=== PATIENT | female | born 1940 | race Caucasian/White ===

== ENCOUNTER 2016-12-13 06:42 | Inpatient (IN) ==
[~2016-12-13 06:42] MED LIST: ACETAMINOPHEN 500 MG TABLET PO ONE; CLINDAMYCIN PB 900 MG/50 ML BAG IV ONE; DEXAMETHASONE 4 MG/ML INJECTION IVP ONE; FAMOTIDINE PB 20 MG/50 ML BAG IV ONE; LIDOCAINE 1% (10mg/ml) 2mL INJ PF SDV ID ONE; MELOXICAM 15 MG TABLET PO ONE; METOCLOPRAMIDE 10mg/2ml INJECTION IVP ONE; NOZIN NASAL SWAB NAS ONE; ONDANSETRON 4 MG/2 ML INJECTION IVP ONE; SALINE FLUSH 10ml SYRINGE IVF PRN; TRANEXAMIC ACID 1,000 MG in NS 100 ML IV ONE
--- OUTSIDE RECORDS SUMMARY | 2016-12-13 06:53 | External Medical Summary | Continuity of Care Document ---
:1940 Author Organization [facility] Address [address] [place] [address] Phone Care Team Providers Name Role Phone Deanne PHAM, Corbin Primary Care Provider Layla Live Unavailable Abdulaziz Booker Unavailable Unavailable Nathalie Yang LPN Unavailable Unavailable Unavailable Problems Name Dates Details Acute Pancreatitis Status: Active BENIGN HYPERTENSION (401.1, I10) Status: Active Breast cancer screening (V76.10, Z12.39) Status: Active Cardiac murmur, previously undiagnosed (785.2) Status: Active Cataract Removal, Insert Prosthetic Lens Onset:2015 Comments: bilateral Status: Active Chronic allergic conjunctivitis (372.14, H10.45) Status: Active Edema (782.3, R60.9) Status: Active GLAUCOMA (365.9, H40.9) Onset:2015 Comments: left eye Status: Active JOINT PAIN (719.40, M25.50) Status: Active Knee pain (719.46, M25.569) Status: Active LUMBAR BACK PAIN (724.2, M54.5) Status: Active OSTEOARTHRITIS, KNEE (715.96, M17.10) Status: Active POSTMENOPAUSAL STATUS (AGE-RELATED) (NATURAL) (V49.81, Z78.0) Status: Active Pregnancies () Comments: , vaginal deliveries, no complications , Bottle fed Status: Active PREOP EXAMINATION (V72.84, Z01.818) Status: Active Unspecified Diagnosis Status: Active Medications Name Dates Details DilTIAZem HCl ER Coated Beads 240 MG Oral Capsule Extended Release 24 Hour 1 Capsule ER 24HR daily for 90 days Quantity: 90 {Capsule} Refills: 3 Ordered: Layla Morgan Start Active Comments:Dr. Alicea FISH OIL CONCENTRATE, 300MG (Oral Capsule) 1 daily (300 MG) Active LASIX, 20MG (Oral Tablet) 1 Tablet daily, as needed for 0 days Quantity: 30 {Tablet} Refills: 1 Ordered:03-Jan-2014 Corbin Alicea MD, Travis MD Start 03-Jan-2014 Active Comments:Medication taken as needed. MULTIVITAMINS (Oral Tablet) 1 daily Active Voltaren 1 % Transdermal Gel 4 Gram four times daily for 0 days Quantity: 100 {Gram} Refills: 2 Ordered: Layla Morgan Start Active Comments:Dr. Alicea BACTRIM DS, 800-160MG (Oral Tablet) 1 (one) Tablet two times daily for 0 days Refills: 0 Ordered:11-Dec-2008 Corbin Alicea MD, Travis MD Start 11-Dec-2008 End 31-Aug-2010 Inactive CALCIUM, 600MG (Oral Tablet) (600 MG) Inactive Diclofenac Sodium 75 MG Oral Tablet Delayed Release 1 (one) Tablet DR Rosangela DR two times daily for 0 days Quantity: 180 {Tablet} Refills: 3 Ordered: Briseida Greenwood Start 09-Dec-2013 End Inactive DILTIAZEM HCL CR, 180MG (Oral Capsule Extended Release 24 Hour) 1 Capsule ER 24HR daily for 0 days Quantity: 90 {Capsule_ER_24HR} Refills: 0 Ordered:30-Jul-2010 Keerthi De Souza LPN Start 29-Jul-2010 Inactive ETODOLAC, 500MG (Oral Tablet) 1 (one) Tablet two times daily for 0 days Quantity: 180 {Tablet} Refills: 3 Ordered:26-Aug-2014 Briseida Greenwood Start End 26-Aug-2014 Inactive fish oil 4mg 1 PO QD 1 Daily End 31-Aug-2010 Inactive GLUCOSAMINE CHONDR 1500 COMPLX (Oral Capsule) Inactive LASIX, 20MG (Oral Tablet) 1 Tablet daily for 0 days Refills: 0 Ordered:11-Dec-2008 Mary Ellen Flores MD Start 11-Dec-2008 Inactive METOPROLOL TARTRATE, 50MG (Oral Tablet) 1 Tablet two times daily for 0 days Quantity: 180 {Tablet} Refills: 3 Ordered:14-Sep-2010 Sofi Cabrera [employer] Start 14-Sep-2010 End Inactive MOBIC, 15MG (Oral Tablet) 1 Tablet Tablet daily for 90 days Quantity: 90 {Tablet} Refills: 2 Ordered:09-Dec-2013 Corbin Alicea MD, Travis MD Start 13-Aug-2013 End 09-Dec-2013 Inactive Comments:Pt requests [address] Alicea approved refill. [facility]. [facility] PATADAY, 0.2% (Ophthalmic Solution) 1 (one) drop(s) OU daily for 0 days Quantity: 2 {Solution} Refills: 0 Ordered:17-Jan-2013 Yinamolina Nathalie LPN Start 31-Aug-2010 End 17-Jan-2013 Inactive POTASSIUM, 99MG (Oral Tablet) 1 daily (99 MG) End Inactive LODINE, 500MG (Oral Tablet) 1 two times daily for 0 days Refills: 3 Ordered:24-Mar-2008 Josiane Barrera RN Start 24-Mar-2008 End 11-Dec-2008 Discontinued Comments:This order discontinued per [facility]. ZITHROMAX Z-JOVANA, 250MG (PO Cap) for 0 days Refills: 0 Ordered:11-Dec-2008 Josiane Barrera RN End 11-Dec-2008 Discontinued Comments:This order discontinued per [facility]. Allergies and Adverse Reactions Name Dates Details Anesthetic *DERMATOLOGICALS* (Allergy) Status: Active Comments: Was on ventilator for 4 days in 2005 after anesthesia. Diflucan *ANTIFUNGALS* (Allergy) Reaction: Itching Status: Active Flagyl *ANTI-INFECTIVE AGENTS - MISC.* Status: Active Comments: Edema, rash , hives, itching (Allergy) Keflex *CEPHALOSPORINS* (Allergy) Status: Active Comments: rash Levaquin *FLUOROQUINOLONES* (Allergy) Status: Active Comments: Edema, hives , itching, rash, Past Medical History Name Dates Details INFLUENZA VACCINE ADMINISTERED (V04.81, Z23) Status: Inactive Procedures Procedure Dates Details CHEST X-RAY, (PA/LATERAL)(06972) Ordered: ADMIN INFLUENZA VIRUS VAC: ADMIN Ordered:17-Jan-2013 INFLUENZA VIRUS VAC ([id number]) IMMUNIZATION ADMIN ([id number]) Completed:17-Jan-2013 FLU VACCINE, 3 YRS & >, IM Completed:17-Jan-2013 (48209) DXA BONE DENSITY/PERIPHERAL Ordered:17-Jan-2013 (07703) DXA BONE DENSITY, AXIAL (48226) Ordered:17-Jan-2013 ECHOCARDIOGRAM (75509) Ordered:17-Jan-2013 MAMMOGRAM, SCREENING (11940) Ordered:17-Jan-2013 Influenza: vaccine Ordered:07-Feb-2012 IMMUNIZATION ADMIN ([id number]) Age 18 Completed:07-Feb-2012 & Over FLU VACCINE NO PRESERV 3 & Completed:07-Feb-2012 > (85876) ECG RECORDING, Ordered:10-Apr-2009 MONITORING/ANALYSIS (61758) ECG RECORDING, PHYS Ordered:10-Apr-2009 INTERPRETATION ([id number]) Cholecystectomy Dilation And Curettage Of Uterus Comments: excessive bleeding Tonsillectomy Comments: and adnoidectomy Immunization Name Dates Details Influenza (3 years and up) Administered on:17-Jan-2013 Comments: Site: Deltoid (Left) Lot #: [id number] Influenza, preservative free (3 years and up) Administered on:07-Feb-2012 Comments: Site: Deltoid (Right) Lot #: [id number] Family History Name Dates Details Brother 1 Comments: In stable health. Open heart surgery, 2 AR's, Diabetes , Thyroid dysfunction Status: Active Daughter 1 Comments: In good health. Tomeka Status: Active Daughter 2 Comments: In good health. Giuliana, pleural effusion Status: Active Daughter 3 Comments: In good health. Lanie, has pituatary problem Status: Active Daughter 4 Comments: In good health. Linda Status: Active Father Comments: . CVA, [place], 94 Status: Active Maternal Grandfather Comments: . Heart problems Status: Active Maternal Grandmother Comments: . after surgery, opened 7 times in 1 month, had adhesions Status: Active Mother Comments: . Knee replacements, CHF. age 83. Status: Active Paternal Grandfather Comments: . unk. cause of Status: Active Paternal Grandmother Comments: . 'old age' Status: Active Social History Name Dates Details Alcohol Use Comments: None Status: Active Caffeine Use Comments: 1 coffee a day, occ. soda Status: Active Current Household Members Comments: Status: Active Dentures or plates Comments: Upper and lower Status: Active Highest Education Level Attained: College graduate. Status: Active Marital status: . 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 Status: Active Orthodox Comments: Gnosticist Status: Active Tobacco Use: Former smoker. Comments: Smoked from age 16 to 1985 Status: Active Type Of Home: House. Status: Active Vital Signs Date Test Result Details 15:38 Temperature 97.6 f Comments: Method: Tympanic Pulse 87 /min Comments: Pattern: Regular Respiration Rate 18 /min Comments: Pattern: Unlabored O2 SAT 90 % Comments: Room air BP Systolic 132 mm[Hg] Comments: Patient Position: Sitting; Cuff Location: Right Arm; Cuff Size: Standard BP Diastolic 80 mm[Hg] Comments: Patient Position: Sitting; Cuff Location: Right Arm; Cuff Size: Standard Weight 247.25 lb Height 67.75 in Body Mass Index Calculated 37.87 kg/m2 Body Surface Area Calculated 2.23 m2 26-Aug-2014 16:08 Temperature 98 f Comments: Method: Tympanic Pulse 89 /min Comments: Pattern: Regular Respiration Rate 18 /min Comments: Pattern: Unlabored O2 SAT 95 % Comments: Room air BP Systolic 130 mm[Hg] Comments: Patient Position: Sitting; Cuff Location: Right Arm; Cuff Size: Standard BP Diastolic 80 mm[Hg] Comments: Patient Position: Sitting; Cuff Location: Right Arm; Cuff Size: Standard Weight 245.75 lb Height 67.75 in Body Mass Index Calculated 37.64 kg/m2 Body Surface Area Calculated 2.23 m2 26-Sep-2013 13:28 Temperature 97.4 f Comments: Method: Tympanic Pulse 103 /min Comments: Pattern: Regular Respiration Rate 18 /min Comments: Pattern: Unlabored O2 SAT 97 % Comments: 4L O2 BP Systolic 128 mm[Hg] Comments: Patient Position: Sitting; Cuff Location: Left Arm; Cuff Size: Standard BP Diastolic 64 mm[Hg] Comments: Patient Position: Sitting; Cuff Location: Left Arm; Cuff Size: Standard Weight 248.25 lb Height 67.75 in Body Mass Index Calculated 38.02 kg/m2 Body Surface Area Calculated 2.23 m2 17-Jan-2013 13:24 Temperature 96.7 f Comments: Method: Tympanic Pulse 89 /min Comments: Pattern: Regular Respiration Rate 16 /min Comments: Pattern: Unlabored O2 SAT 95 % Comments: Room air BP Systolic 122 mm[Hg] Comments: Patient Position: Sitting; Cuff Location: Left Arm; Cuff Size: Standard BP Diastolic 78 mm[Hg] Comments: Patient Position: Sitting; Cuff Location: Left Arm; Cuff Size: Standard Weight 248 lb 13:02 Temperature 97.5 f Comments: Method: Tympanic Pulse 87 /min Comments: Pattern: Regular Respiration Rate 16 /min Comments: Pattern: Unlabored O2 SAT 95 % Comments: Room air BP Systolic 120 mm[Hg] Comments: Patient Position: Sitting; Cuff Location: Left Arm; Cuff Size: Large BP Diastolic 80 mm[Hg] Comments: Patient Position: Sitting; Cuff Location: Left Arm; Cuff Size: Large Weight 242.5 lb Height 67.75 in Body Mass Index Calculated 37.14 kg/m2 Body Surface Area Calculated 2.21 m2 31-Aug-2010 15:52 Temperature 97.5 f Comments: Method: Tympanic Pulse 77 /min Comments: Pattern: Regular Respiration Rate 12 /min Comments: Pattern: Unlabored O2 SAT 97 % Comments: Room air BP Systolic 128 mm[Hg] Comments: Patient Position: Sitting; Cuff Location: Left Arm; Cuff Size: Standard BP Diastolic 80 mm[Hg] Comments: Patient Position: Sitting; Cuff Location: Left Arm; Cuff Size: Standard Weight 244.75 lb 10-Apr-2009 13:28 Temperature 97 f Comments: Method: Tympanic Pulse 80 /min Comments: Pattern: Regular Respiration Rate 20 /min Comments: Pattern: Unlabored O2 SAT 93 % Comments: Room air BP Systolic 120 mm[Hg] Comments: Patient Position: Sitting; Cuff Location: Left Arm; Cuff Size: Standard BP Diastolic 70 mm[Hg] Comments: Patient Position: Sitting; Cuff Location: Left Arm; Cuff Size: Standard Weight 258 lb Results Date Description Value Details 09-Sep-2010 09:54 CBC AUTOMATED Comments: notify all labs look good, no change MPV 7.1 fL (Normal) Range: 7.0-11.0 PLT 229 10*3/uL Range: 150-450 (Normal) RDW 13.0 % (Normal) Range: 11.5-14.5 HCT 42.5 % (Normal) Range: 33.2-49.4 MCH 30.5 PG (Normal) Range: 25.9-34.2 MCHC 34.4 g/dL (Normal) Range: 32.6-35.7 MCV 89 fL (Normal) Range: 78-97 BA# 0.0 10*3/uL Range: 0.0-0.2 (Normal) HGB 14.6 g/dL (Normal) Range: 11.4-16.4 RBC 4.78 M/UL (Normal) Range: 3.70-5.30 EO# 0.2 10*3/uL Range: 0.0-0.7 (Normal) LY# 1.2 10*3/uL Range: 1.0-3.5 (Normal) MO# 0.4 10*3/uL Range: <0.9 (Normal) NE# 3.7 10*3/uL Range: 1.5-6.6 (Normal) BA% 0.6 % (Normal) Range: 0.0-2.0 EO% 4.0 % (Abnormal) Range: 1.0-3.0 LY% 22.1 % (Normal) Range: 10.0-50.0 MO% 8.0 % (Normal) Range: 3.0-13.0 NE% 65.3 % (Normal) Range: 40.0-79.0 WBC AUTO 5.5 10*3/uL Range: 4.0-10.5 (Normal) 09:54 COMPREHENSIVE MET PANEL GFR >60 ML/MIN Range: >60 (Normal) AST 16 U/L (Normal) Range: 15-46 ALP 69 U/L (Normal) Range: 39-139 ALT 20 U/L (Normal) Range: 11-66 TBIL 0.6 mg/dL (Normal) Range: 0.2-1.3 A/G RATIO 1.1 (Normal) Range: 1.1-2.5 ALB 3.9 g/dL (Normal) Range: 3.5-5.1 CO2 27.5 mg/dL (Normal) Range: 22.0-32.0 TPROTEIN 7.4 g/dL (Normal) Range: 6.4-9.0 CL 105 mmol/L (Normal) Range: 99-110 K 4.2 mmol/L (Normal) Range: 3.5-5.1 NA 142 mmol/L (Normal) Range: 137-145 BUN/CREA RATIO 25.0 (Normal) Range: 0.0-30.0 CA 9.2 mg/dL (Normal) Range: 8.4-10.2 BUN 18.0 mg/dL Range: 7.0-17.0 (Abnormal) CREAT 0.7 mg/dL (Normal) Range: 0.7-1.2 GLUCOSE 100 mg/dL (Normal) Range: 70-100 09:54 LIPID PANEL Comments: FASTING? YES LDL/DHDL 1.70 mg/dL (Normal) Range: 0.70-3.55 CHOL/HDL 3.5 RATIO (Normal) Range: <5.6 VLDL 35 mg/dL (Normal) Range: 0-40 CHOL 152 mg/dL (Normal) Range: 0-200 HDL 43 mg/dL (Normal) Range: 40-60 LDLC 73 mg/dL (Normal) Range: 0-130 TRIG 177 mg/dL Range: 30-150 (Abnormal) 09:54 TSH 1.99 UIU/ML Range: 0.49-4.67 (Normal) Treatment Plan URINALYSIS, AUTOMATED, W/O MICRO (31233); Ordered: 11/17/2016EKG (57185); Ordered : 11/17/2016COMPREHENSIVE METABOLIC PANEL (20992); Ordered: 11/17/2016CBC WITH AUTO DIFF (38390); Ordered: 11/17/2016COMPREHENSIVE METABOLIC PANEL(CMP),(44465) ; Ordered: 01/17/2013LIPID PANEL (70671); Ordered: 01/17/2013CBC (06643); Ordered : 01/17/2013LIPID PANEL (30067); Ordered: 10/21/2011COMPREHENSIVE METABOLIC PANEL( CMP),(61252); Ordered: 10/21/2011CBC (94126); Ordered: 10/21/2011TSH (THYROID STIMULATING HORMONE) (04530); Ordered: 08/31/2010LIPID PANEL (43980); Ordered: COMPREHENSIVE METABOLIC PANEL(CMP),(13859); Ordered: 08/31/2010CB (48010) ; Ordered: 08/31/2010TSH (THYROID STIMULATING HORMONE) (95472); Ordered: 2008CB (34454); Ordered: 04/10/2009LIPID PANEL (40848); Ordered: 2008COMPREHENSIVE METABOLIC PANEL(CMP),(71886); Ordered: 04/10/2009 Advance Directives Encounters Review - PREOP EXAMINATION (V72.84 | Z01.818), OSTEOARTHRITIS, KNEE (715.36 | M17.10), POSTMENOPAUSAL STATUS (AGE-RELATED) (NATURAL) (V49.81 | Z78.0), BENIGN HYPERTENSION (401.1 | I10) On Encounter Reason: Preoperative evaluation - The patient feels well with minor complaints (left knee arthritis, to be replaced). Surgical procedures include: other (left knee replacement). Date of procedure: (12-13-16) . P 15:37 revious problems include: a reaction to general anesthesia (was on the ventilator for 4 days . trouble bringing her out of anesthesia. Last knee replacement was done 08/2015 using Versed and a spinal an esthesia). Prosthetics include: an artificial limb (right knee prosthesis) and eye glasses. Note for "Preoperative evaluation": [facility] Medication Note - BENIGN HYPERTENSION (401.1 | I10) On 01-Jan-2015 [facility] 11:25 to 14:47 Office Visit - PREOP EXAMINATION (V72.84 | Z01.818), OSTEOARTHRITIS, KNEE ( 715.36 | M17.10), BENIGN HYPERTENSION (401.1 | I10) 26-Aug-2014 to 05-Sep-2014 Encounter Reason: Preoperative evaluation - The patient feels well with no complaints. Surgical procedures include: other (right knee replacement). Date of procedure: (09-02-14) . Previous problems include: a reaction t o general anesthesia (ended up on ventilator for 4 days ). Prosthetics include : dentures and eye glasses. Note for "Preoperative evaluation": [facility] Medication Note - BENIGN HYPERTENSION (401.1 | I10), Pain in joint, unspecified site (719.40) On 09-Dec-2013 [facility] 14:33 to 14:37 Office Visit - Knee pain (719.46) (719.46 | M25.569), BENIGN HYPERTENSION ( 401.1 | I10), Edema (782.3) (782.3 | R60.9) 26-Sep-2013 to 03-Oct-2013 Encounter Reason: Knee Pain - This condition occurred without any known injury. Symptoms include knee pain, stiffness and locking. Symptoms are located in the left knee and right knee. There is no radiation. The patient describes the pain as sharp and aching. The patient describes symptoms as worsening. Note for "Knee pain": Pt. c/o continued bilateral knee pain that is gradually getting worse. Pt. states her knees a re now locking up on her when she walks. Pt. states this happens once in a while. Pt. states the L knee is worse than the R knee. Pt. states she has not had xrays of the knees. Pt. reports increased swelling to the L foot. [facility] Office Visit - Knee pain (719.46), Hypertension, benign (401.1), Breast cancer screening (V76.10), Cardiac murmur, previously undiagnosed (785.2), Post- menopausal (V49.81), VACCINE AGAINST INFLUENZA (V04.81)PRESERV FREE 3yr+ ( prefilled) 17-Jan-2013 to 19-Jan-2013 Encounter Reason: Medication Review/Refill - Note for "Medication Review/Refill ": pt needs refills on meds. Pt. states she is wanting a flu shot as well. Pt. states she is getting ready to travel to visit family and wa nts to get the shot before she leaves. [facility] Nurse Visit - VACCINE AGAINST INFLUENZA (V04.81)PRESERV FREE 3yr+ (prefilled) On 07-Feb-2012 Encounter Reason: Nurse Visit - The patient feels well with no complaints. The patient here for the following: immunization/s. Note for "Nurse Visit": Fluzone 0.5 mL given IM in R deltoid after info given and consent confirmed.-- Risa 21:10 to 21:12 [facility] Office Visit - Hypertension, benign (401.1), Lumbago (724.2) to Encounter Reason: Hypertension - Symptoms do not include headache or dizziness. Recent blood pressure has been mostly < 110/70. The patient describes this as resolved. Note for "Hypertension": Pt stopped metoprolol an d lasix due to dizziness. She thought her "dizzy spells" were due to drop in blood sugar but eating or drinking juice did not help. BP was at 90/60. She cut back metoprolol and lasix to once a day from BID and no improvement. She did notice improvement once she stopped completely. Symptoms resolved then and has been doing well. 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 Last report in chart is from [address] Cabrera. Pt states she has been seen since then. , [ADDITIONAL REASON] Back pain - The pain has been occurring for years. The pain is described as bein g located in the lower back. The pain radiates to the lateral aspect of right leg. The symptoms are aggravated by prolonged standing. Note for "Back pain": Etodolac helps. She is needing a refill. [facility] Office Visit - Hypertension, benign (401.1), Edema (782.3), Chronic allergic conjunctivitis (372.14) 31-Aug-2010 to 02-Sep-2010 Encounter Reason: General Exam, Follow Up - Last seen more than 1 year ago. General health: feels well with minor complaints and is sleeping well. Current problems include joint pains (knees). Note for "General Exam, Fol low Up": SHe states she has no stress at work.She did not have [facility] labs done.C/o's nausea with fish oil.She reports her BP runs low at times. Some days she feels slowed down or like she cant mov e. She decreases her metoprolol to 1 daily when her BP is low.[facility] Historical Summary On 21-Apr-2009 [facility] 12:41 to 12:44 Historical Summary On 10-Apr-2009 [facility] 18:42 to 18:46 Office Visit - Hypertension, benign (401.1), Edema (782.3), Lumbago (724.2) 4- Dec-2009 to 16-Apr-2009 Encounter Reason: Back pain - The pain has been occurring for weeks. The course has been constant. The pain is described as being located in the lower back. The pain radiates to the lateral aspect of right leg. The sympt oms are aggravated by prolonged standing. , [ADDITIONAL REASON] General Exam, Follow Up - Last seen more than 1 year ago. General health: feels well with minor complaints. Normal bowel and bladder habits. Current problems include joint pains (ar thritis, etodolac helps pain.). Note for "General Exam, Follow Up": She has been seeing Dr. Cabrera, she last saw him about one year ago. She is needing labs done. She is planning on seeing Dr. Paul . She is needing an EKG done. She is planning on having a well woman exam and mammogram next year. She states her last exam was done in [place]. [facility] Historical Summary - Pain in joint, unspecified site (719.40) On 26-Feb-2009 [facility] 20:05 to 20:34 Historical Summary - Unspecified Diagnosis On 11-Dec-2008 [facility] 12:29 to 12:35 Historical Summary On 10-Jan-2008 [facility] 16:33 to 16:33 Insurance Brenda Artis; carlos guarantorMedicareA115Blue Cross Pt [id number] [place] Pt B
--- OUTSIDE RECORDS SUMMARY | 2016-12-13 06:53 | External Medical Summary | Continuity of Care Document ---
:1940 Author Organization [facility] Address [address] [place] [address] Phone Care Team Providers Name Role Phone Deanne PHAM, Corbin Primary Care Provider Layla Live Unavailable Briseida Menchaca Unavailable Tomi ALBERTO, Abdulaziz Patel Unavailable Unavailable Nathalie Yang LPN Unavailable Unavailable Unavailable Problems Name Dates Details Acute Pancreatitis Status: Active BENIGN HYPERTENSION (401.1, I10) Status: Active Breast cancer screening (V76.10, Z12.39) Status: Active Cardiac murmur, previously undiagnosed (785.2) Status: Active Cataract Removal, Insert Prosthetic Lens Onset:2016 Comments: bilateral Status: Active Chronic allergic conjunctivitis (372.14, H10.45) Status: Active Edema (782.3, R60.9) Status: Active GLAUCOMA (365.9, H40.9) Onset:2016 Comments: left eye Status: Active JOINT PAIN (719.40, M25.50) Status: Active Knee pain (719.46, M25.569) Status: Active LUMBAR BACK PAIN (724.2, M54.5) Status: Active OSTEOARTHRITIS OF LEFT KNEE (715.96, M17.12) Status: Active POSTMENOPAUSAL STATUS (AGE-RELATED) (NATURAL) (V49.81, [...] Tablet Delayed Release 1 (one) Tablet DR Tablet DR two times daily for 0 days [...] 180 {Tablet} Refills: 3 Ordered:14-Sep-2010 Sofi Cabrera SALES REPRESENTATIVE [employer]ASH REGISTERS Start 14-Sep-2010 End Inactive MOBIC, 15MG (Oral Tablet) 1 Tablet Tablet daily for 90 days Quantity: 90 {Tablet} Refills: 2 Ordered:09-Dec-2013 Corbin Alicea MD, Travis MD Start 13-Aug-2013 End 09-Dec-2013 Inactive Comments:Pt requests [address] Alicea approved refill. Pt. [facility] [place] [facility] PATADAY, 0.2% (Ophthalmic Solution) 1 (one) drop(s) OU daily for 0 days Quantity: 2 {Solution} Refills: 0 Ordered:17-Jan-2013 Nathalie Yang LPN Start 31-Aug-2010 End 17-Jan-2013 Inactive POTASSIUM, [...] Inactive Procedures Procedure Dates Details CHEST X-RAY, (PA/LATERAL)(43165) Ordered: ADMIN INFLUENZA VIRUS VAC: ADMIN Ordered:17-Jan-2013 INFLUENZA VIRUS VAC ([id number]) IMMUNIZATION ADMIN (51276) Completed:17-Jan-2013 FLU VACCINE, 3 YRS & >, IM Completed:17-Jan-2013 (60130) DXA BONE DENSITY/PERIPHERAL Ordered:17-Jan-2013 (04820) DXA BONE DENSITY, AXIAL (99910) Ordered:17-Jan-2013 ECHOCARDIOGRAM (47816) Ordered:17-Jan-2013 MAMMOGRAM, SCREENING (97042) Ordered:17-Jan-2013 Influenza: vaccine Ordered:07-Feb-2012 IMMUNIZATION ADMIN (58481) Age 18 Completed:07-Feb-2012 & Over FLU VACCINE NO PRESERV 3 & Completed:07-Feb-2012 > (09783) ECG RECORDING, Ordered:10-Apr-2009 MONITORING/ANALYSIS (83741) ECG RECORDING, PHYS Ordered:10-Apr-2009 INTERPRETATION (70827) Cholecystectomy Dilation And Curettage Of Uterus Comments: excessive bleeding Tonsillectomy Comments: and adnoidectomy Immunization Name Dates Details Influenza (3 years and up) Administered on:17-Jan-2013 Comments: Site: Deltoid (Left) Lot #: [id number] Influenza, preservative free (3 years and up) Administered on:07-Feb-2012 Comments: Site: Deltoid (Right) Lot #: [id number] Family History Name Dates Details Brother 1 Comments: In stable health. Open heart surgery, 2 MS's, Diabetes , Thyroid dysfunction Status: Active Daughter 1 Comments: In good health. Tomeka Status: Active Daughter 2 Comments: In good health. Giuliana, pleural effusion, obese Status: Active Daughter 3 Comments: In good health. Lanie, has pituatary problem Status: Active Daughter 4 Comments: In good health. Linda Status: Active Father Comments: . CVA, [place], 94 Status: Active Maternal Grandfather Comments: . 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 Status: Active Anglican Comments: Taoism Status: Active Tobacco Use: Former smoker. Comments: [...] (Normal) Treatment Plan URINALYSIS, AUTOMATED, W/O MICRO (81082); Ordered: 11/17/2016EKG (34350); Ordered : 11/17/2016COMPREHENSIVE METABOLIC PANEL (07684); Ordered: 11/17/2016CBC WITH AUTO DIFF (86764); Ordered: 11/17/2016COMPREHENSIVE METABOLIC PANEL(CMP),(42004) ; Ordered: 01/17/2013LIPID PANEL (87900); Ordered: 01/17/2013CBC (19365); Ordered : 01/17/2013LIPID PANEL (57806); Ordered: 10/21/2011COMPREHENSIVE METABOLIC PANEL( CMP),(97765); Ordered: 10/21/2011CBC (67062); Ordered: 10/21/2011TSH (THYROID STIMULATING HORMONE) (72245); Ordered: 08/31/2010LIPID PANEL (40866); Ordered: COMPREHENSIVE METABOLIC PANEL(CMP),(10851); Ordered: 08/31/2010CBC (80752) ; Ordered: 08/31/2010TSH (THYROID STIMULATING HORMONE) (92399); Ordered: 2008CBC (31400); Ordered: 04/10/2009LIPID PANEL (73021); Ordered: 2008COMPREHENSIVE METABOLIC PANEL(CMP),(32326); Ordered: 04/10/2009 Advance Directives Encounters Office Visit - PREOP EXAMINATION (V72.84 | Z01.818), OSTEOARTHRITIS OF LEFT KNEE (715.96 | M17.12), POSTMENOPAUSAL STATUS (AGE-RELATED) (NATURAL) (V49.81 | Z78.0), BENIGN HYPERTENSION (401.1 | I10) to Encounter Reason: Preoperative evaluation - The patient feels well with minor complaints (left knee arthritis, to be replaced). Surgical procedures include: other (left knee replacement). Date of procedure: (12-13-16) . P revious problems include: a reaction to general anesthesia (was on the ventilator for 4 days . trouble bringing her out of anesthesia. Last knee replacement was done 08/2015 using Versed and a spinal a nesthesia). Prosthetics include: an artificial limb (right knee prosthesis) and eye glasses. Note for "Preoperative evaluation": [facility] - BENIGN HYPERTENSION (401.1 | I10) On 01-Jan-2015 [facility] 11:25 to 14:47 Office Visit - PREOP [...] and eye glasses. Note for "Preoperative evaluation": [facility] Medication Note - BENIGN HYPERTENSION (401.1 | I10), Pain in joint, unspecified site (719.40) On 09-Dec-2013 [facility] 14:33 to 14:37 Office Visit - Knee [...] reports increased swelling to the L foot. [facility] Office Visit - Knee pain (719.46), Hypertension, [...] to get the shot before she leaves. [facility] Nurse Visit - VACCINE AGAINST INFLUENZA (V04.81)PRESERV FREE 3yr+ (prefilled) On 07-Feb-2012 Encounter Reason: Nurse Visit - The patient feels well with no complaints. The patient here for the following: immunization/s. Note for "Nurse Visit": Fluzone 0.5 mL given IM in R deltoid after info given and consent confirmed.-- Risa 21:10 to 21:12 [facility] Office Visit - Hypertension, benign (401.1), Lumbago [...] 110/ 70's at home.She does have a repeat chief in [facility]. Last report in [...] Etodolac helps. She is needing a refill. [facility] Office Visit - Hypertension, benign (401.1), Edema [...] to 1 daily when her BP is low.[facility] Historical Summary On 21-Apr-2009 [facility] 12:41 to 12:44 Historical Summary On 10-Apr-2009 [facility] 18:42 to 18:46 Office Visit - Hypertension, benign (401.1), Edema (782.3), Lumbago (724.2) Apr-2009 to 16-Apr-2009 Encounter Reason: Back pain - [...] states her last exam was done in [place]. [facility] Historical Summary - Pain in joint, unspecified site (719.40) On 26-Feb-2009 [facility] 20:05 to 20:34 Historical Summary - Unspecified Diagnosis On 11-Dec-2008 [facility] 12:29 to 12:35 Historical Summary On 10-Jan-2008 [facility] 16:33 to 16:33 Insurance Brenda Artis; carlos guarantorMedicareA115Blue Cross Pt AMedicareB146Blue Cross Pt B
--- OUTSIDE RECORDS SUMMARY | 2016-12-13 06:53 | External Medical Summary | Continuity of Care Document ---
:1940 Author Organization [facility] Address [address] [place] [address] Care Team Providers Name Role Phone Corbin Alicea MD Unavailable Unavailable Insurance Providers Payer Name Policy Number Subscriber Name Relationship Medicare [id number] Brenda Pike Self / Same As Patient [employer] - Plan 65 [id number] Brenda Pike Self / Same As Patient Advance Directives Directive Response Recorded Date/Time Do You Have A Living Will? No 09/17/14 2:28pm Do You Have a DPOA? No 09/17/14 2:28pm Problems Medical Problems Problem Onset Date Status Osteoarthritis of right knee Unknown Active Anemia due to blood loss, acute Unknown Active anemia acute mild Unknown Active Medications Medication Dose Route Sig Days/Qty Instructions Order Discontinued Status Date Date Multivitamins 1 Tab PO DAILY 30 Qty 08/20/ Active 15 Diltiazem HCl 240 PO DAILY 08/20/ Active Mg BEFORE A 15 MEAL Diclofenac 75 Mg PO TWICE A 60 Qty 08/20/ 09/02/14 Discontinue Sodium DAY 15 d Lysine 500 PO DAILY 08/20/ Active Mg BEFORE A 15 MEAL Solgohachia-3 Fatty 1 Cap PO DAILY 08/20/ Active Acids/Fish Oil 15 Glucosamine 1,500 PO DAILY 08/20/ Active Hcl Mg 15 Rivaroxaban 10 Mg PO DAILY 28 Qty 09/02/ Active For 15 Anticoag ulant Oxycodone/Acet 1-2 PO EVERY 60 Qty 09/02/ 09/17/14 Discontinue aminophen Tab 4-6 15 d HOURS NEEDED PRN PAIN Acetaminophen 500 PO 09/17/ Active (Tylenol 500 Mg NEEDED 15 Mg Extra Strength) Social History Social History Problem Response Recorded Date/Time History of Street Drugs? No 09/17/2014 1:36pm Hx Alcohol Use N former smoker 09/17/2014 1:36pm Hospital Discharge Instructions No hospital discharge instructions. Plan of Care Prescriptions See Medications Section Follow-up Orders Chest Pa And Lat EKG- 12 Lead CMP CBC w/Auto Diff UAFLEX Protime And Ptt US Agustín Dup LwExt-Rt US Extrem Non Vas-Rt Referrals Layla Morgan APRN (Family Practice) 08/26/14 Address: [address] [address] Functional Status No functional status results. Allergies, Adverse Reactions, Alerts Allergen Type Severity Reaction Status Last Updated Cephalexin Allergy Intermediate hives Active 08/20/14 Fluconazole Allergy Intermediate RASH Active 09/02/14 Levofloxacin Allergy Intermediate RASH Active 09/02/14 Immunizations No immunization records. Vital Signs Acute Vital Signs Vital Response Date/Time Temperature (Fahrenheit) 97.5 degrees F (97.6 - 99.5) Temperature (Celsius) 36.80 degrees C (36.4 - 37.5) Pulse Pulse Rate 86 bpm (60 - 100) Respiratory Rate 18 bpm (10 - 24) Oxygen Saturation O2 Sat by Pulse Oximetry 97 % (93 - 100) Blood Pressure 135/57 mm Hg Blood Pressure Mean 83 mm Hg Ambulatory Vital Signs Vital Response Date/Time Height 5 ft 8 in 09/17/2014 1:32pm Temperature, Oral 96.9 degrees F 09/17/2014 1:32pm Pulse Rate 92 bpm 09/17/2014 1:32pm Respiration Rate 16 bpm 09/17/2014 1:32pm Results Test Source Date Result Interp. Ref. Range Comments Anion Gap September 05, 2014 10 N 7-17 3:45am BUN/Creatinine September 05, 2014 15 N 7-25 Ratio 3:45am Basophils # September 05, 2014 0.03 1000/uL N 0.00-0.20 3:45am Basophils % September 05, 2014 0.4 % 3:45am Blood Urea Nitrogen September 05, 2014 10 mg/dL N 7-25 3:45am Calcium Level September 05, 2014 8.9 mg/dL N 8.6-10.2 3:45am Calculated September 05, 2014 286 mOSM/kg N 280-300 Osmolality 3:45am Carbon Dioxide September 05, 2014 28.8 mmol/L N 19.0-30.0 Level 3:45am Chloride Level September 05, 2014 99 mmol/L N 98-110 3:45am Creatinine September 05, 2014 0.67 mg/dL N 0.60-0.93 3:45am Eosinophils # September 05, 2014 0.12 1000/uL N 0.01-0.50 3:45am Eosinophils % September 05, 2014 1.5 % 3:45am Estimated GFR September 05, 2014 99 N >60 Units: () 3:45am mL/min/1.73m2) Estimated GFR September 05, 2014 64.04 ml/min >30 Adjusted body (Cockcroft-Gault) 3:45am weight used for calculation. Estimated GFR September 05, 2014 85 N >60 Units: (Non- 3:45am mL/min/1.73m2) Tristanian Glucose Level September 05, 2014 111 mg/dL H 65-99 3:45am Granulocytes # September 05, 2014 5.95 1000/uL N 1.50-7.80 3:45am Granulocytes (%) September 05, 2014 76.8 % 3:45am Hematocrit September 05, 2014 31.8 % L 35.0-45.0 3:45am Hemoglobin September 05, 2014 10.5 g/dL L 11.7-15.5 3:45am Lab Scanned Report August 23 - 2014 7:30am CMP/PT/INR/PT T/CBC [id number] Lymphocytes # September 05, 2014 0.68 1000/uL L 0.85-3.90 3:45am Lymphocytes % September 05, 2014 8.8 % 3:45am Mean Corpuscular September 05, 2014 29 pg N 27-33 Hemoglobin 3:45am Mean Corpuscular September 05, 2014 33 g/dL N 32-36 Hemoglobin Concent 3:45am Mean Corpuscular September 05, 2014 89 fL N 80-100 Volume 3:45am Mean Platelet September 05, 2014 9.7 fL N 8.7-11.9 Volume 3:45am Monocytes # September 05, 2014 0.97 1000/uL H 0.20-0.95 3:45am Monocytes % September 05, 2014 12.5 % 3:45am Platelet Count September 05, 2014 135 1000/cmm L 140-400 3:45am Potassium Level September 05, 2014 3.4 mmol/L L 3.5-5.0 3:45am Red Blood Count September 05, 2014 3.59 MIL/uL L 3.80-5.10 3:45am Red Cell September 05, 2014 13.4 % N 11.0-15.0 Distribution Width 3:45am Sodium Level September 05, 2014 138 mmol/L N 135-146 3:45am White Blood Count September 05, 2014 7.8 1000/cmm N 3.8-10.8 3:45am Patient: BRENDA PIKE Discharge Summary Date/Time of Admission: Sep 02, 2014 at 08:08 Date of Discharge: September 06, 2014 Discharge Diagnoses: (1) Osteoarthritis of right knee (2) Anemia due to blood loss, acute (3) anemia acute mild Discharge Diagnoses: End stage OA of the right knee Mild anemia History: See Admission History & Physical. Services: Orthopedics, Medical Specialists Attending Physician: Dr Pedro Consultations: Medical Specialists Pertinent Laboratory findings: Mild anemia Vital Signs (from EMR): Vital Signs 09/05/14 09/06/14 02:26 09:15 Temp 97.5 Pulse 100 Resp 18 B/P 135/67 Pulse Ox 94 O2 Delivery Nasal Cannula O2 Flow Rate 3.0 Hospital Course: Admitted for end stage OA of the right knee Underwent successful Rt TKA Tolerated surgery well, made good gains with PT, OT Mild blood loss anemia- no transfusion required No hospital acquired infections, no adverse drug reactions, no transfusions She resumed bowel and bladder function as per pre-op Dismissed with PT, Oral narcotics, Xarelto home health PT ordered 3x week for duration of protocol New Medications: Oxycodone/Acetaminophen (Percocet 5/325MG) 1 Tab Tablet 1-2 TAB PO Q4-6PRN PRN PAIN #60 TAB Rivaroxaban (Xarelto*) 10 Mg Tablet 10 MG PO DAILY Anticoagulant #28 TAB Continued Medications: Diltiazem HCl (Diltiazem ER 240MG) 240 Mg Capsule.er 240 MG PO QDAC CAP Glucosamine Hcl (Glucosamine Hcl) 1,500 Mg Tablet 1500 MG PO DAILY TABLET Lysine (Lysine) 500 Mg Tablet 500 MG PO QDAC TABLET Multivitamins (Multivitamin*) 1 Tab Tablet 1 TAB PO DAILY #30 TAB Solgohachia-3 Fatty Acids/Fish Oil (Fish Oil 1,000 Mg Softgel) 1 Cap Capsule 1 CAP PO DAILY CAPSULE Discontinued Medications: Diclofenac Sodium (Diclofenac Sodium 75Mg) 75 Mg Tablet. 75 MG PO BID #60 TAB Follow-up: 10 days Discharge Disposition: Home Discharge Instructions: Home health PT, Xarelto, Percocet, [place] dressing: do not disturb until office appt Nahomi Marx September 06, 2014 11:40 <Electronically signed by Nahomi TORRES> 09/06/14 1221 Report Not Authenticated Until Signing Provider Signature is in Place Procedures Procedure Status Date Provider(s) Med/Allergy Verification completed 08/20/14 Patient Services completed 08/21/14 Patient Services completed 09/17/14 Encounters Encounter Location Date/Time Registered Clinic [facility] 09/17/14 2:29pm Office Visit [facility] 09/17/14 1:30pm Discharged Inpatient [facility] 09/02/14 8:08am Office Visit [facility] [place] 08/20/14 2:10pm
--- OUTSIDE RECORDS SUMMARY | 2016-12-13 06:53 | External Medical Summary | Continuity of Care Document ---
:1940 Author Organization [facility] Address [address] [place] [address] Phone Care Team Providers Name Role Phone [...] H40.9) Onset:2015 Comments: left eye Status: Active INFLUENZA VACCINE ADMINISTERED (V04.81, Z23) Status: Active JOINT PAIN (719.40, M25.50) Status: [...] for 90 days Quantity: 90 {Capsule} Refills: 0 Ordered:13-Sep-2016 Corbin Alicea MD, Travis MD Start 13-Sep-2016 Active FISH OIL CONCENTRATE, 300MG (Oral Capsule) 1 daily (300 MG) Active LASIX, 20MG (Oral Tablet) 1 Tablet daily, as needed for 0 days Quantity: 30 {Tablet} Refills: 1 Ordered:03-Jan-2014 Corbin Alicea MD, Travis MD Start 03-Jan-2014 Active Comments:Medication taken as needed. MULTIVITAMINS (Oral Tablet) 1 daily Active BACTRIM DS, 800-160MG (Oral Tablet) 1 (one) [...] 180 {Tablet} Refills: 3 Ordered:14-Sep-2010 Sofi Cabrera APPLE PEELER OPERATOR Start 14-Sep-2010 End Inactive MOBIC, 15MG (Oral Tablet) 1 Tablet Tablet daily for 90 days Quantity: 90 {Tablet} Refills: 2 Ordered:09-Dec-2013 Corbin Alicea MD, Travis MD Start 13-Aug-2013 End 09-Dec-2013 Inactive Comments:Pt requests [address] Alicea approved refill. [facility]. [facility] PEELER OPERATOR PATADAY, 0.2% (Ophthalmic Solution) 1 (one) drop(s) OU daily for 0 days Quantity: 2 {Solution} Refills: 0 Ordered:17-Jan-2013 Nathalie Yang APPLE PEELER OPERATOR Start 31-Aug-2010 End 17-Jan-2013 Inactive POTASSIUM, 99MG (Oral Tablet) 1 daily (99 MG) End Inactive LODINE, 500MG (Oral Tablet) 1 two times daily for 0 days Refills: 3 Ordered:24-Mar-2008 Josiane Barrera RN Start 24-Mar-2008 End 11-Dec-2008 Discontinued Comments:This order discontinued per [facility]. ZITHROMAX Z-JOVANA, 250MG (PO Cap) for 0 days Refills: 0 Ordered:11-Dec-2008 Josiane Barrera RN End 11-Dec-2008 Discontinued Comments:This order discontinued per [facility]. Allergies and Adverse Reactions Name Dates Details Anesthetic *DERMATOLOGICALS* (Allergy) Status: Active Diflucan *ANTIFUNGALS* (Allergy) Status: Active Flagyl *ANTI-INFECTIVE AGENTS - MISC.* Status: Active Comments: Edema, rash , hives, itching (Allergy) Keflex *CEPHALOSPORINS* (Allergy) Status: Active Comments: rash Levaquin *FLUOROQUINOLONES* (Allergy) Status: Active Comments: Edema, hives , itching, rash, Past Medical History No Significant Medical History. Procedures Procedure Dates Details ADMIN INFLUENZA VIRUS VAC: ADMIN Ordered:17-Jan-2013 INFLUENZA VIRUS VAC (G0008) IMMUNIZATION ADMIN ([id number]) Completed:17-Jan-2013 FLU VACCINE, 3 YRS & >, IM Completed:17-Jan-2013 (43376) DXA BONE DENSITY/PERIPHERAL Ordered:17-Jan-2013 (02685) DXA BONE DENSITY, AXIAL (22990) Ordered:17-Jan-2013 ECHOCARDIOGRAM (74321) Ordered:17-Jan-2013 MAMMOGRAM, SCREENING (55287) Ordered:17-Jan-2013 Influenza: vaccine Ordered:07-Feb-2012 IMMUNIZATION ADMIN ([id number]) Age 18 Completed:07-Feb-2012 & Over FLU VACCINE NO PRESERV 3 & Completed:07-Feb-2012 > (60238) ECG RECORDING, MONITORING/ANALYSIS Ordered:10-Apr-2009 (83403) ECG RECORDING, PHYS INTERPRETATION Ordered:10-Apr-2009 (20704) Cholecystectomy Dilation And Curettage Of Uterus Comments: excessive bleeding Tonsillectomy Comments: and adnoidectomy Immunization Name Dates Details Influenza (3 years and up) Administered on:17-Jan-2013 Comments: Site: Deltoid (Left) Lot #: [id number] Influenza, preservative free (3 years and up) Administered on:07-Feb-2012 Comments: Site: Deltoid (Right) Lot #: [id number] Family History Name Dates Details Brother 1 Comments: In stable health. Open heart surgery, 2 HI's, Diabetes , Thyroid dysfunction Status: Active Daughter 1 Comments: In good health. Tomeka Status: Active Daughter 2 Comments: In good health. Giuliana, pleural effusion Status: Active Daughter 3 Comments: In good health. Lanie Status: Active Daughter 4 Comments: In good health. Linda Status: Active Father Comments: . CVA, [place], 94 Status: Active Maternal Grandfather Comments: . 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 Status: Active Catholic Comments: Mosque Status: Active Tobacco Use: Former smoker. Comments: [...] 1.99 UIU/ML Range: 0.49-4.67 (Normal) Treatment Plan COMPREHENSIVE METABOLIC PANEL(CMP),(57963); Ordered: 01/17/2013LIPID PANEL (06220 ); Ordered: 01/17/2013CBC (49751); Ordered: 01/17/2013LIPID PANEL (43233); Ordered : 10/21/2011COMPREHENSIVE METABOLIC PANEL(CMP),(18600); Ordered: 10/21/2011CBC ( 48078); Ordered: 10/21/2011TSH (THYROID STIMULATING HORMONE) (43527); Ordered: LIPID PANEL (44039); Ordered: 08/31/2010COMPREHENSIVE METABOLIC PANEL(CMP) ,(58787); Ordered: 08/31/2010CBC (12589); Ordered: 08/31/2010TSH (THYROID STIMULATING HORMONE) (31541); Ordered: 04/10/2009CBC (25687); Ordered: 2008LIPID PANEL (07104); Ordered: 04/10/2009COMPREHENSIVE METABOLIC PANEL(CMP),( 73421); Ordered: 04/10/2009 Advance Directives Encounters Review On Encounter Reason: Preoperative evaluation - The patient feels well with no complaints. Surgical procedures include: other (left knee replacement). Date of procedure: (12-13-16) . Previous problems include: a reaction to g 15:37 eneral anesthesia (was on the vent for 4 days . trouble bringing her out of anesthesia). Prosthetics include: an artificial limb (right knee). Note for "Preoperative evaluation": [facility] Medication Note - BENIGN HYPERTENSION (401.1 | I10) On 01-Jan-2015 [facility] 11:25 to 14:47 Office Visit - [...] and eye glasses. Note for "Preoperative evaluation": [facility] Medication Note - BENIGN HYPERTENSION (401.1 | I10), Pain in joint, unspecified site (719.40) On 09-Dec-2013 [facility] 14:33 to 14:37 Office Visit - [...] reports increased swelling to the L foot. [facility] Office Visit - Knee pain (719.46), [...] to get the shot before she leaves. [facility] Nurse Visit - VACCINE AGAINST INFLUENZA (V04.81)PRESERV FREE 3yr+ (prefilled) On 07-Feb-2012 Encounter Reason: Nurse Visit - The patient feels well with no complaints. The patient here for the following: immunization/s. Note for "Nurse Visit": Fluzone 0.5 mL given IM in R deltoid after info given and consent confirmed.-- Risa 21:10 to 21:12 [facility] Office Visit - Hypertension, benign (401.1), [...] 110/ 70's at home.She does have a social services in [facility]. Last report in chart is from 2007 [...] Etodolac helps. She is needing a refill. [facility] Office Visit - Hypertension, benign (401.1), [...] to 1 daily when her BP is low.[facility] Historical Summary On 21-Apr-2009 [facility] 12:41 to 12:44 Historical Summary On 10-Apr-2009 [facility] 18:42 to 18:46 Office Visit - [...] states her last exam was done in [place]. [facility] Historical Summary - Pain in joint, unspecified site (719.40) On 26-Feb-2009 [facility] 20:05 to 20:34 Historical Summary - Unspecified Diagnosis On 11-Dec-2008 [facility] 12:29 to 12:35 Historical Summary On 10-Jan-2008 [facility] 16:33 to 16:33 Insurance Brenda Artis; a guarantorMedicareA115Blue Cross Pt AMedicareB146Blue Cross Pt B
--- OUTSIDE RECORDS SUMMARY | 2016-12-13 06:53 | External Medical Summary | Continuity of Care Document ---
:1940 Author Organization [facility] Address [address] [place] [address] Phone Care Team Providers Name Role Phone eDanne PHAM, Corbin Primary Care Provider Layla Live Unavailable Abdulaziz Booker Unavailable Unavailable Nathalie Yang LPN Unavailable Unavailable Unavailable Problems Name Dates Details Acute Pancreatitis Status: Active BENIGN HYPERTENSION (401.1, I10) Status: Active Breast cancer screening (V76.10, Z12.39) Status: Active Cardiac murmur, previously undiagnosed (785.2) Status: Active Chronic allergic conjunctivitis (372.14, H10.45) Status: Active Edema (782.3, R60.9) Status: Active INFLUENZA VACCINE ADMINISTERED (V04.81, Z23) [...] Diagnosis Status: Active Medications Name Dates Details DICLOFENAC SODIUM, 75MG (Oral Tablet Delayed Release) 1 (one) Tablet DR Tablet DR two times daily for 0 days Quantity: 180 {Tablet} Refills: 3 Ordered:09-Dec-2013 Briseida Greenwood Start 09-Dec-2013 Active DilTIAZem HCl ER Coated Beads 240 MG [...] CALCIUM, 600MG (Oral Tablet) (600 MG) Inactive DILTIAZEM HCL CR, 180MG (Oral Capsule [...] 180 {Tablet} Refills: 3 Ordered:14-Sep-2010 Sofi Cabrera LPN Start 14-Sep-2010 End Inactive MOBIC, 15MG (Oral Tablet) 1 Tablet Tablet daily for 90 days Quantity: 90 {Tablet} Refills: 2 Ordered:09-Dec-2013 Corbin Alicea MD, Travis MD Start 13-Aug-2013 End 09-Dec-2013 Inactive Comments:Pt requests [address] Alicea approved refill. Pt. notified that Rx was sent via erefill to [facility]. ouse [employer] PATADAY, 0.2% (Ophthalmic Solution) 1 (one) drop(s) OU daily for 0 days Quantity: 2 {Solution} Refills: 0 Ordered:17-Jan-2013 Nathalie Yang [employer] Start 31-Aug-2010 End 17-Jan-2013 Inactive POTASSIUM, 99MG [...] Allergies and Adverse Reactions Name Dates Details Flagyl *ANTI-INFECTIVE AGENTS - MISC.* Status: Active Comments: Edema, rash , hives, itching (Allergy) Keflex *CEPHALOSPORINS* (Allergy) Status: Active Comments: rash Levaquin *FLUOROQUINOLONES* (Allergy) Status: Active Comments: Edema, hives , itching, rash, Past Medical History No Significant Medical History. Procedures Procedure Dates Details ADMIN INFLUENZA VIRUS VAC: ADMIN Ordered:17-Jan-2013 INFLUENZA VIRUS VAC ([id number]) IMMUNIZATION ADMIN ([id number]) Completed:17-Jan-2013 FLU VACCINE, 3 YRS & >, IM Completed:17-Jan-2013 (57662) DXA BONE DENSITY/PERIPHERAL Ordered:17-Jan-2013 ([id number]) DXA BONE DENSITY, AXIAL (68623) Ordered:17-Jan-2013 ECHOCARDIOGRAM (86178) Ordered:17-Jan-2013 MAMMOGRAM, SCREENING (62104) Ordered:17-Jan-2013 Influenza: vaccine Ordered:07-Feb-2012 IMMUNIZATION ADMIN ([id number]) Age 18 Completed:07-Feb-2012 & Over FLU VACCINE NO PRESERV 3 & Completed:07-Feb-2012 > (88501) ECG RECORDING, MONITORING/ANALYSIS Ordered:10-Apr-2009 (68950) ECG RECORDING, PHYS INTERPRETATION Ordered:10-Apr-2009 (93929) Cholecystectomy Dilation And Curettage Of Uterus Comments: excessive bleeding Tonsillectomy Comments: and adnoidectomy Immunization Name Dates Details Influenza (3 years and up) Administered on:17-Jan-2013 Comments: Site: Deltoid (Left) Lot #: [id number] Influenza, preservative free (3 years and up) Administered on:07-Feb-2012 Comments: Site: Deltoid (Right) Lot #: [id number] Family History Name Dates Details Brother 1 Comments: In stable health. Open heart surgery, 2 CO's, Diabetes , Thyroid dysfunction Status: Active Daughter 1 Comments: In good health. Tomeka Status: Active Daughter 2 Comments: In good health. Giuliana, pleural effusion Status: Active Daughter 3 Comments: In good health. Lanie Status: Active Daughter 4 Comments: In good health. Linda Status: Active Father Comments: . CVA, [place], 94 Status: Active Maternal Grandfather Comments: . 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 Status: Active Zoroastrianism Comments: Confucianism Status: Active Tobacco Use: Former smoker. Comments: Smoked from age 16 to 1985 Status: Active Type Of Home: House. Status: Active Vital Signs Date Test Result Details 26-Aug-2014 16:08 Temperature 98 f Comments: Method: [...] Range: 0.49-4.67 (Normal) Treatment Plan COMPREHENSIVE METABOLIC PANEL(CMP),(63722); Ordered: 01/17/2013LIPID PANEL (28802 ); Ordered: 01/17/2013CBC (65885); Ordered: 01/17/2013LIPID PANEL (57303); Ordered : 10/21/2011COMPREHENSIVE METABOLIC PANEL(CMP),(91549); Ordered: 10/21/2011CBC ( 84105); Ordered: 10/21/2011TSH (THYROID STIMULATING HORMONE) (31218); Ordered: LIPID PANEL (41682); Ordered: 08/31/2010COMPREHENSIVE METABOLIC PANEL(CMP) ,(61973); Ordered: 08/31/2010CBC (78023); Ordered: 08/31/2010TSH (THYROID STIMULATING HORMONE) (34257); Ordered: 04/10/2009CBC (06762); Ordered: 2008LIPID PANEL (72663); Ordered: 04/10/2009COMPREHENSIVE METABOLIC PANEL(CMP),( 33858); Ordered: 04/10/2009 Advance Directives Encounters Medication Note - BENIGN HYPERTENSION (401.1 | I10) On 01-Jan-2015 [facility] 11:25 to 14:47 Office Visit - PREOP [...] and eye glasses. Note for "Preoperative evaluation": [facility] Medication Note - BENIGN HYPERTENSION (401.1 | I10), Pain in joint, unspecified site (719.40) On 09-Dec-2013 [facility] 14:33 to 14:37 Office Visit - Knee [...] reports increased swelling to the L foot. [facility] Office Visit - Knee pain (719.46), Hypertension, [...] to get the shot before she leaves. [facility] Nurse Visit - VACCINE AGAINST INFLUENZA (V04.81)PRESERV FREE 3yr+ (prefilled) On 07-Feb-2012 Encounter Reason: Nurse Visit - The patient feels well with no complaints. The patient here for the following: immunization/s. Note for "Nurse Visit": Fluzone 0.5 mL given IM in R deltoid after info given and consent confirmed.-- Risa 21:10 to 21:12 [facility] Office Visit - Hypertension, benign (401.1), Lumbago [...] 110/ 70's at home.She does have a wound care center consultant in [facility]. Last report in chart is from 2007 [...] Etodolac helps. She is needing a refill. [facility] Office Visit - Hypertension, benign (401.1), Edema [...] to 1 daily when her BP is low.[facility] Historical Summary On 21-Apr-2009 [facility] 12:41 to 12:44 Historical Summary On 10-Apr-2009 [facility] 18:42 to 18:46 Office Visit - Hypertension, [...] states her last exam was done in [place]. [facility] Historical Summary - Pain in joint, unspecified site (719.40) On 26-Feb-2009 [facility] 20:05 to 20:34 Historical Summary - Unspecified Diagnosis On 11-Dec-2008 [facility] 12:29 to 12:35 Historical Summary On 10-Jan-2008 [facility] 16:33 to 16:33 Insurance Brenda Artis; carlos guarantorMedicareA115Blue Cross Pt AMedicareB146Blue Shantanu Pt B
--- OUTSIDE RECORDS SUMMARY | 2016-12-13 06:53 | External Medical Summary | Continuity of Care Document ---
:1940 Author Organization [facility] Address [address] [place] [address] Care Team Providers Name Role Phone Corbin Alicea MD Unavailable Unavailable Insurance Providers Payer Name Policy Number Subscriber Name Relationship Medicare [id number] Brenda Pike Self / Same As Patient Bcbs - Plan 65 [id number] Brenda Pike Self / Same As Patient Advance Directives Directive Response Recorded Date/Time Do You Have A Living Will? No 08/22/14 7:34am Do You Have a DPOA? No 08/22/14 7:34am Chief Complaint and Reason for Visit Chief Complaint TKR Reason for Visit Osteoarthritis of right knee Anemia due to blood loss, acute anemia acute mild Problems Medical Problems Problem Onset Date Status [...] Mg PO TWICE A 60 Qty 08/20/ 09/02/ Discontinue Sodium DAY 15 d Lysine 500 PO DAILY 08/20/ Active Mg BEFORE A 15 MEAL Farrell-3 Fatty 1 Cap PO DAILY 08/20/ Active Acids/Fish Oil 15 Glucosamine 1,500 PO DAILY 08/20/ Active Hcl Mg 15 Rivaroxaban 10 Mg PO DAILY 28 Qty 09/02/ Active For 15 Anticoag ulant Oxycodone/Acet 1-2 PO EVERY 60 Qty 09/02/ Active aminophen Tab 4-6 15 HOURS NEEDED PRN PAIN Social History Social History Problem Response Recorded Date/Time History of Street Drugs? No 09/02/2014 8:30am Hx Alcohol Use N former smoker 09/02/2014 8:30am Query Response Start Date Stop Date Smoking status: Former smoker Hospital Discharge Instructions Instructions Discharge Discharge/Dismiss patient: Discharge instructions: Home health PT, Xarelto, Percocet, [place] dressing: do not disturb until office appt Return to office appointment: 10 days Plan of Care Discharge Date 09/06/14 2:37pm Disposition HOME, ROUTINE DIS/ASST LIVING Prescriptions See Medications Section Follow-up Orders Chest Pa And Lat EKG- 12 Lead CMP CBC w/Auto Diff UAFLEX Protime And Ptt Referrals Layla Morgan APRN ([facility]) 08/26/14 Address: [address] [address] Additional Instructions/Education - Follow up with MELISSA Hernandez on September 17 @ 1:30pm. [facility] [phone] - Home Health will contact you with appointment time. Functional Status No functional status results. Allergies, [...] Hg Blood Pressure Mean 83 mm Hg Height 5 ft 9 in Weight 248 lb Body Mass Index 36.0 kg/m^2 Ambulatory Vital Signs Vital Response Date/Time Blood Pressure, Sitting, Right Arm 138/96 mm Hg 08/20/2014 2:26pm Pulse Rate 92 bpm 08/20/2014 2:26pm Respiration Rate 16 bpm 08/20/2014 2:26pm Results Test Source Date Result Interp. Ref. [...] 85 N >60 Units: (Non- 3:45am mL/min/1.73m2) [place] Glucose Level September 05, 2014 111 mg/dL H 65-99 3:45am Granulocytes # September 05, 2014 5.95 1000/uL N 1.50-7.80 3:45am Granulocytes (%) September 05, 2014 76.8 % 3:45am Hematocrit September 05, 2014 31.8 % L 35.0-45.0 3:45am Hemoglobin September 05, 2014 10.5 g/dL L 11.7-15.5 3:45am Lab Scanned Report August 23 - 2014 7:30am CMP/PT/INR/PT T/CBC [id number] Lymphocytes # September 05, 2014 0.68 [...] Tablet 1 TAB PO DAILY #30 TAB Farrell-3 Fatty Acids/Fish Oil (Fish Oil 1,000 Mg Softgel) 1 Cap Capsule 1 CAP PO DAILY CAPSULE Discontinued Medications: Diclofenac Sodium (Diclofenac Sodium 75Mg) 75 Mg Tablet.dr 75 MG PO BID #60 TAB Follow-up: 10 days Discharge Disposition: Home Discharge Instructions: Home health PT, Xarelto, Percocet, [place] dressing: do not disturb until office appt Nahomi Marx September 06, 2014 11:40 <Electronically signed by Nahomi TORRES> 09/06/14 1221 Report Not Authenticated Until Signing Provider Signature is in Place Procedures Procedure Status Date Provider(s) Med/Allergy Verification completed 08/20/14 Patient Services completed 08/21/14 Encounters Encounter Location Date/Time Discharged Inpatient [facility] 09/02/14 8:08am Office Visit [facility] 08/20/14 2:10pm Recent Diagnosis Osteoarthritis of right knee Anemia due to blood loss, acute anemia acute mild
--- OUTSIDE RECORDS SUMMARY | 2016-12-13 06:54 | External Medical Summary | Continuity of Care Document ---
:1940 Author Organization [facility] Allergies Active Description Code Type Severity Reaction Onset Reported/ Identified Relationship Clinical to Patient Status Yes cephalexin F0060 Drug Moderate hives 08/20/2014 43128 Aller gy Yes fluconazole F0060 Drug Moderate RASH 09/02/2014 68135 Aller gy Yes levofloxacin F0060 Drug Moderate RASH 09/02/2014 45347 Aller gy Medications Medication Packaging Start Date Stop Date Route Dosage Sig 08/20/2014 1500 MG Glucosamine Hcl 1500 MG DAILY 08/20/2014 500 MG Lysine 500 MG QDAC 08/20/2014 1 CAP [place]-3 Fatty Acids/Fish Oil 340 DAILY MG-1000 MG 08/20/2014 1 TAB Multivitamins 1 TAB DAILY 08/20/2014 240 MG Diltiazem HCl 240 MG QDAC 09/17/2014 500 MG Acetaminophen 500 MG PRN 10/15/2014 40 MG Furosemide 40 MG PRN Problems Date Dx Attending Type Code Diagnosis Diagnosed By Coded 09/17/2014 Nahomi Greenfield 719.06 JOINT EFFUSION-L/LEG 09/17/2014 Nahomi Greenfield Other 996.77 OTH COMPLICATIONS DUE TO INTERNAL JOINT PROSTHESIS 09/17/2014 Nahomi Greenfield Other V43.65 KNEE JOINT REPLACEMENT STATUS 09/17/2014 Nahomi Greenfield Other 719.06 JOINT EFFUSION-L/LEG 09/17/2014 Nahomi Greenfield Other 996.77 OTH COMPLICATIONS DUE TO INTERNAL JOINT PROSTHESIS 09/17/2014 Nahomi Greenfield Other V43.65 KNEE JOINT REPLACEMENT STATUS 09/24/2014 Nahomi Greenfield Other 719.06 JOINT EFFUSION-L/LEG 09/24/2014 Nahomi Greenfield Other 996.77 OTH COMPLICATIONS DUE TO INTERNAL JOINT PROSTHESIS 09/24/2014 Nahomi Greenfield Other V43.65 KNEE JOINT REPLACEMENT STATUS 09/21/2016 Marco PHAM, Other M17.12 UNILATERAL PRIMARY Gulraiz A OSTEOARTHRITIS LEFT KNEE 09/21/2016 Marco PHAM, Other 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 Type Provider Facility Loc./Unit Complaint No. Date/Time [id number] 09/21/2016 09/21/2016 CLS Outpatient Marco CHAVISG.HO.RAD LT KNEE [id number] 11:29:00 23:59:59 , Medical PAIN [facility] [id number] 09/21/2016 09/21/2016 CLS Outpatient Marco Rizo HMG.ORT LT KNEE [id number] 10:40:00 23:59:59 , Medical PAIN [facility] [id number] 08/26/2015 08/26/2015 CLS Outpatient Sallie Pedro MD HMG.ORT.CO [id number] 10:00:00 23:59:59 [facility] [id number] 10/15/2014 10/15/2014 CLS Outpatient Francisco J CHAVISG.HO.RAD [id number] 13:37:00 23:59:59 MELISSA [facility] [id number] 09/17/2014 09/17/2014 DIS Outpatient Francisco J CHAVISG.US [id number] 14:29:00 23:59:00 MELISSA [facility] [id number] 09/02/2014 09/06/2014 DIS Inpatient Willis PHAM, Rizo SURG [id number] 08:08:00 14:37:00 [facility]
[2016-12-13] MEDS ORDERED: TRANEXAMIC ACID 1,000 MG in NS 100 ML IV ONE (07:00)
--- NOTE | 2016-12-13 07:06 | History & Physical Update ---
- History and Physical Update Date: 12/13/16 Update: I evaluated this patient and found no changes in the history and clinical exam findings. The treatment plan and recommendations are also unchanged from the previous documentation.
[2016-12-13 07:16] VITALS: BMI 38.2
[2016-12-13] MEDS: LR 1,000 ML IV SCH ×2 (07:16→10:18)
[2016-12-13] MEDS ORDERED: EPINEPHrine 0.25 MG, BUPIVACAINE 0.25% PF 30 ML, MORPHINE SULFATE 15 MG, KETOROLAC INJ ... OPSITE ONE (08:00)
--- NOTE | 2016-12-13 08:36 | Anesthesia Preoperative Report ---
Anesthesia Preoperative Record - Date and Time Date: 12/13/16 Preoperative Diagnosis: M17.12 Lt TKA Proposed Procedure: left total knee NPO Since Date: 12/12/16 NPO Since Time: 23:00 Allergies/Adverse Reactions: Allergies Allergy/AdvReac Type Severity Reaction Status Date / Time cephalexin [From Keflex] Allergy Unknown Rash Verified 12/13/16 07:11 levofloxacin [From Levaquin] Allergy Unknown Edema, Verified 12/13/16 07:11 hives, itching, rash metronidazole [From Flagyl] Allergy Unknown edema, Verified 12/13/16 07:11 rash, hives, itching fluconazole [From Diflucan] AdvReac Verified 12/13/16 07:11 Anesthesia Allergy Unknown On Uncoded 12/13/16 07:11 ventilator x4 days - Vital Signs Vital Signs: Temperature 97.5 F 12/13/16 07:02 Pulse Rate 83 12/13/16 07:36 Respiratory Rate 20 12/13/16 07:02 Blood Pressure 147/77 H 12/13/16 07:02 Pulse Oximetry 94 12/13/16 07:02 Oxygen Delivery Method Room Air Height and Weight: Height 5 ft 7 in Weight 110.7 kg Body Mass Index 38.2 - Medications Inpatient Medications: Current Medications Lactated Ringer's (Lactated Ringers) 1,000 mls @ 50 mls/hr IV .Q20H ANALISA Last Admin: 12/13/16 07:16 Dose: 50 mls/hr Sodium Chloride (Iv Flush) 10 - 80 ml IVF PRN PRN PRN Reason: [place] Home Medications: Home Medications Medication Instructions Recorded Confirmed Type Mapap Extra Strength 500 mg tablet 1,000 mg PO Q6H PRN 10/31/16 12/13/16 History diltiazem CD 240 mg 240 mg PO DAILY 90 Days 10/31/16 12/13/16 History capsule,extended release 24 hr ibuprofen 200 mg capsule 800 mg PO TID PRN 10/31/16 12/13/16 History multivitamin tablet 1 cap PO QAM 10/31/16 12/13/16 History omega-3 fatty acids 1,000 mg 1,000 mg PO DAILY 10/31/16 12/13/16 History capsule Timolol 0.5% Eye Drops [Timoptic 1 drops LEFT EYE BID 11/16/16 12/13/16 History 0.5% Eye Drops] Is Patient on Beta Torres?: No - Medical History Cardiovascular: Reports: Other (PSVT hx- well controlled) DENIES: Angina, Coronary Artery Disease Gastrointestional: DENIES: Gastroesophageal Reflux Disease Other History: DENIES: Anesthesia Reactions - Surgical History HEENT Surgeries: Reports: Eye Surgery (Cataract with IOL), Tonsillectomy GI Surgery/Treatments: Reports: Cholecystectomy Musculoskeletal Surgery/Tx: Reports: Total Knee Replacement (Rt TKA) Anesthesia Reactions: Other (unknown reaction with anesthetic in past, but said a spinal worked well) - Social History Smoking Status: Former smoker Hx Chewing Tobacco Use: No Second Hand Exposure: No Substance Use Type: does not use - Pertinent Findings Laboratory: CBC and BMP 12/13/16 07:13 EKG Rhythm: Normal Sinus Rhythm - Physical Exam Respiratory Exam: Present: lungs clear Cardiovascular Exam: Present: regular rate and rhythm - Airway Assessment Mallampati Score: II TMD: 3 Fingerbreadths Neck Extension: good Overall Assessment: may be difficult mask vent - ASA ASA Score: 2 - Plan Anesthesia: General TIVA Regional/Trunk Block: Spinal - Discussion Discussion: Discussed risks/options/alternatives of anesthesia and questions answered. Patient consents. Nursing pain assessment noted. Present for Discussion: spouse Attestation Statement: Prior to the delivery of any anesthetic medication, I examined the patient, developed the plan, obtained the patient's consent and discussed the risk and benefits of the procedure with the patient/guardian. - Additional Information Seen by Anesthesia: Yes
[2016-12-13] MEDS ORDERED: FentaNYL 100 MCG/2 ML INJECTION ONE (08:56)
[2016-12-13] MEDS ORDERED: KETAMINE 500 MG/10 ML INJECTION ONE (08:57)
[2016-12-13] MEDS ORDERED: MIDAZOLAM 2mg/2ml INJECTION ONE (08:57)
[2016-12-13] MEDS ORDERED: EPHEDRINE 50mg/ml INJECTION ONE (10:26)
[2016-12-13] MEDS ORDERED: VANCOMYCIN 1,000 MG INJECTION ONE (10:27)
[2016-12-13] MEDS ORDERED: SALINE FLUSH 10ml SYRINGE ONE (10:41)
[2016-12-13] MEDS ORDERED: ROPIVACAINE 0.5% (5mg/ml) 30ml INJ ONE (11:04)
[2016-12-13] MEDS ORDERED: VANCOMYCIN 1,000 MG INJECTION IAR ONE (11:15)
--- NOTE | 2016-12-13 11:26 | Operative Note ---
- Procedure Date of Admission: 12/13/16 Side: left Preoperative Diagnosis: knee primary DJD Postoperative Diagnosis: Same as preoperative diagnosis. Operation: total knee arthroplasty Surgeon: Wilmer Casper MD Cement Mason Apprentice: Sylvester Henry Complications: None. Regional/Trunk Block: Spinal Peripheral Nerve Block: Saphenous-Left Estimated Blood Loss: See Anesthesia Record. Fluids: Please see Anesthesia Record. Description of Procedure: Mrs. Artis and the [] knee were identified and marked in the preoperative holding area. She was brought back to the operating suite and placed supine on the operating table. Spinal anesthetic was administered. The operative lower extremity was prepped and draped in a sterile fashion. Timeout was performed. She had no contracture. An anterior midline incision followed by medial parapatellar arthrotomy was performed. The tourniquet was not used until cementing. Hemostasis was obtained with electrocautery. The patella was resurfaced to a size 32. A distal femoral osteotomy was then performed in 5 of valgus using intramedullary guide. The femur was sized at a 5 and rotation set using the epicondylar axis. Distal femoral cuts were performed with a 4-in-1 cutting block. A proximal tibial cut was then made perpendicular to its long axis using an extramedullary guide. At this point remaining meniscus and osteophytes were removed and joint cocktail was injected throughout soft tissue. Trial components were placed with a 11 mm spacer. This allowed for full extension and flexion and the patella tracked well. The leg was then exsanguinated and the tourniquet inflated to 250 mmHg. The tibia was then stamped at a size 5 at the proper rotation. The bone was then prepared for cementing and [place] [employer] components were cemented into place and allowed to cure in extension. The tourniquet was then let down and hemostasis obtained with electrocautery. Betadine solution was used during the curing period for 3 minutes. 1 g of vancomycin powder was placed into the joint before the capsulotomy was repaired with #1 Vicryl. I then left my medical billing assistant close the subcutaneous tissue and skin with 2-0 Vicryl and Monocryl. Dermabond was used on the skin. The drapes were then removed and she was taken to recovery room under the care of anesthesia.
--- NOTE | 2016-12-13 12:16 | Anesthesia Procedure Note ---
Peripheral Nerve Blockade - Procedure Physician: Leonard Casper MD Date: 12/13/16 Surgical Procedure: left TKA Discussion: Discussed risks/options/alternatives of anesthesia and questions answered. Patient consents. Nursing pain assessment noted. Block Start: 12:08 Block Stop: 12:12 Blocked Employed: Adductor Canal Indication: Post-Operative Pain Approach: Left Side Confirmed Position: Supine Patient: Consent, Risks/Benefits Discussed, Informed, Post Block Act. Discussed IV Sedation: No (spinal still in effect) Initial Vital Signs: Temperature 97.5 F 12/13/16 07:02 Temperature Source Oral 12/13/16 07:02 Pulse Rate 89 12/13/16 07:02 Respiratory Rate 20 12/13/16 07:02 Blood Pressure 147/77 H 12/13/16 07:02 Blood Pressure Mean 100 12/13/16 07:02 Pulse Oximetry 94 12/13/16 07:02 Oxygen Delivery Method 12/13/16 07:02 Post Vital Signs: Temperature 97.5 F 12/13/16 07:02 Pulse Rate 83 12/13/16 07:36 Respiratory Rate 20 12/13/16 07:02 Blood Pressure 147/77 H 12/13/16 07:02 Pulse Oximetry 94 12/13/16 07:02 Oxygen Delivery Method Room Air Initial Pain Pain Score: 0 Post Block Pain Score: 0 Prep: Chlorhexadine/ETOH Ultrasound Used?: Yes - Injectate Ropivacaine (%): 0.5 Ropivacaine (mL): 30 Was Epi 1:200,000 Used?: No Injection: Injection made incrementally with constant monitoring and aspiration every ml
--- NOTE | 2016-12-13 12:17 | Anesthesia Postoperative Note ---
- Date and Time Date: 12/13/16 Time: 12:16 - Status Patient Participated in Evaluation: Patient Participated in Person Vital Signs: Temperature 97.5 F 12/13/16 07:02 Pulse Rate 83 12/13/16 07:36 Respiratory Rate 20 12/13/16 07:02 Blood Pressure 147/77 H 12/13/16 07:02 Pulse Oximetry 94 12/13/16 07:02 Oxygen Delivery Method Room Air Respiratory Function: Airway Patent Cardiovascular Function: Regular Pulse Mental Status: Alert and Oriented Pain Intensity: 0 Hydration: IV Infusing Complications During Recover: None Apparent Post Anesthesia Care Notes: pt states she is starting to feel sensation coming back to legs. Block ~L1 level - Follow-Up Instructions Instructions: Per Surgeon
[2016-12-13] MEDS ORDERED: ONDANSETRON 4 MG/2 ML INJECTION IVP PRN (13:08)
[2016-12-13] MEDS ORDERED: LORazepam 1 MG TABLET PO PRN (13:08)
[2016-12-13] MEDS ORDERED: DiphenhydrAMINE 50 MG/ML INJECTION IVP PRN (13:08)
[2016-12-13] MEDS ORDERED: NOZIN NASAL SWAB NAS ONE (13:08)
[2016-12-13] MEDS ORDERED: NAPROXEN 220 MG TABLET PO PRN (13:08)
[2016-12-13] MEDS ORDERED: DiphenhydrAMINE 25 MG CAPSULE PO PRN (13:08)
[2016-12-13] MEDS ORDERED: TRAMADOL 50 MG TABLET PO PRN (13:08)
[2016-12-13] MEDS: NS 1,000 ML IV SCH (13:34)
--- NOTE | 2016-12-13 13:38 | XRay Report ---
Indication: postoperative image XR knee LT 2V: Comparison: 10/31/2016 Technique: Two view exam Findings: Patient shows recent postoperative changes of a left total knee. Previous study had demonstrated a right total knee. No unexpected findings identified. Impression: Recent postoperative changes of a left total knee. .
[2016-12-13] MEDS: NOZIN NASAL SWAB NAS SCH ×2 (14:06→21:37)
[2016-12-13] MEDS: ACETAMINOPHEN 325 MG TABLET PO SCH ×3 (14:42→21:38)
[2016-12-13] MEDS: CLINDAMYCIN PB 900 MG/50 ML BAG IV SCH ×2 (16:40→21:39)
[2016-12-13] MEDS: DOCUSATE SODIUM 100 MG CAPSULE PO SCH (21:38)
[2016-12-13] MEDS: ASPIRIN *EC* 325 MG TABLET PO SCH (21:38)
[2016-12-13] MEDS: TIMOLOL 0.5% EYE DROPS 5 ML LEFT EYE SCH (21:39)
[2016-12-13] MEDS ORDERED: SENNOSIDES 8.6 MG TABLET PO SCH (22:00)
[2016-12-14] MEDS: CLINDAMYCIN PB 900 MG/50 ML BAG IV SCH (03:26)
[2016-12-14] MEDS: NS 1,000 ML IV SCH (03:27)
[2016-12-14] MEDS: NOZIN NASAL SWAB NAS SCH ×2 (05:17→13:19)
--- NOTE | 2016-12-14 08:45 | Orthopedic Progress Note ---
Date: Subjective/Severity of Illness: Brenda is doing well. Pain levels are well controlled. She is from [place] and has a 4-5 hr trip home. She plans to stay with a granddaughter in [place] for a few days after discharge. Had a 8 beat run of V-Tach yesterday afternoon but was not symptomatic with it. She had some dizziness off and on yesterday but it was not at the time of the V- tach. Dizziness has resolved. No CP, cough or SOA. Sats decreased some overnight and she was placed on oxygen. Use to smoke years ago. Her Knee feels good. She is ready to get up and walk with PT. Orthopedic Objective PO Vital signs: Temperature 97.0 F 12/14/16 07:25 Pulse Rate 92 12/14/16 07:25 Respiratory Rate 16 12/14/16 07:25 Blood Pressure 117/52 12/14/16 07:25 Pulse Oximetry 92 12/14/16 07:25 Oxygen Delivery Method Nasal Cannula Oxygen Flow Rate 1.5 Height and Weight: Height 5 ft 7 in Weight 251 lb 1.704 oz Body Mass Index 38.2 - Constitutional General Appearance: Present: alert, no acute distress - Respiratory Exam Present: non-labored - Extremities Exam Extremities: Present: pulses intact, normal capillary refill - Surgical Site Incision: Mepilex dressing intact, no drainage - Integumentary Exam Present: pink, warm, dry - Neurological Exam Present: no deficits - Psychiatric Exam Present: alert - Labs Result Diagrams: 12/14/16 04:09 12/14/16 04:09 Abnormal lab results 12/14/16 12/14/16 Range/Units 04:09 04:09 WBC 12.1 H (4.5-11.0) T/MM3 Hgb 11.4 L D (12-16) GM/DL Hct 35.4 L D (36-46) % Chloride 108 H (98-107) MEQ/L Glucose 119 H (65-110) MG/DL H & H 12/13/16 12/14/16 Range/Units 07:13 04:09 Hgb 14.4 11.4 L D (12-16) GM/DL Hct 43.6 35.4 L D (36-46) % Orthopedic Assessment and Plan (1) Arthritis of knee, left Status: Acute Assessment and Plan: L TKA 12/13/16 Cont ASA and SCDs for DVT coverage. Wean from Oxygen. Pt smoked for 40 yrs but quit in 1984. CXR clear pre op. Mobilize with therapy. CM for discharge planning. Hospital Course Summary Disclaimer: The visit summary below is not to be considered part of the above Progress Note.
[2016-12-14] MEDS: ASPIRIN *EC* 325 MG TABLET PO SCH (08:53)
[2016-12-14] MEDS: POLYETHYL GLYCOL 3350 17gm PACKET PO SCH ×2 (08:53→10:17)
[2016-12-14] MEDS: DOCUSATE SODIUM 100 MG CAPSULE PO SCH (08:53)
[2016-12-14] MEDS: TIMOLOL 0.5% EYE DROPS 5 ML LEFT EYE SCH (08:54)
[2016-12-14] MEDS: ACETAMINOPHEN 325 MG TABLET PO SCH ×2 (08:54→13:19)
[2016-12-14] MEDS ORDERED: SENNOSIDES 8.6 MG TABLET PO PRN (11:48)
[2016-12-14 12:07] VITALS: BP 129/63; PULSE 77; RESP 13; TEMP 96.9; O2SAT 91
--- NOTE | 2016-12-14 15:23 | Discharge Summary ---
Orthopedic Discharge Info Date of admission: 12/13/16 06:42 Primary care physician: Corbin Alicea MD Attending Physician: Leonard Casper MD Consults: 12/13/16 06:52 Consult to Anesthesiology [CONS] Routine Consulting Provider: MELISSA Kirkpatrick Reason For Exam: Preoperative Assessment 12/13/16 13:08 Case Management Consult [CONS] Routine Reason For Exam: Discharge Planning DME-Walker [CONS] Routine Height: 5 ft 7 in Weight: 244 lb 0.827 oz Comment: change dressing in 2 weeks Total Joint Outpatient Therapy [CONS] Routine Comment: change dressing in 2 weeks - Discharge Diagnosis (1) Arthritis of knee, left Status: Acute - Procedures Procedures: Left knee TKA - Laboratory Result Diagrams: 12/14/16 04:09 12/14/16 04:09 Laboratory: Abnormal lab results 12/14/16 12/14/16 Range/Units 04:09 04:09 WBC 12.1 H (4.5-11.0) T/MM3 Hgb 11.4 L D (12-16) GM/DL Hct 35.4 L D (36-46) % Chloride 108 H (98-107) MEQ/L Glucose 119 H (65-110) MG/DL H & H 12/13/16 12/14/16 Range/Units 07:13 04:09 Hgb 14.4 11.4 L D (12-16) GM/DL Hct 43.6 35.4 L D (36-46) % Orthopedic Discharge HPI - HPI Comments This patient was admitted for elective surgical tx of end stage degenerative joint disease that failed to respond to conservative treatment. Further details of this is found in the admission H&P. Orthopedic Hospital Course Hospital course: 12/14/16 15:19 After appropriate preoperative clearance and signing of operative consent, the patient was given IV antibiotics, according to orthopedic protocol. The patient was taken to the operating room and underwent elective joint arthroplasty. Following surgery, antibiotics were discontinued less than 24 hours according to joint protocol. Appropriate anticoagulants were initiated and SCDs added for DVT prevention. The dressing was clean, dry, and intact. Pain control was obtained via multimodal approach. Bowel motivation addressed with scheduled and PRN medications. Early mobilization was initiated through PT services. Discharge arrangements made by a collaborative effort between the patient and Case Management. Follow-up is scheduled in 2-3 weeks. Discharge instructions given by orthopedic providers and nursing staff at discharge. Discharge condition was good. Ongoing care required?: No - Postoperative Anemia patient received IVF, labs monitored daily, no intervention required, HGB drop- acceptable Discharge Plan - Med Rec/Dispo Referrals/Follow Up: Leonard Casper MD [Physician] - 12/13/16 1:00 pm Donald Instructions: [facility] Postop Instructions Additional Instructions: [facility] FROM [place], [place] WILL PROVIDE YOUR OUT PATIENT PHYSICAL THERAPY. PLEASE CALL THEM WHEN YOU GET HOME AT [phone] TO ARRANGE FOR SERVICES TO BEGIN. CONTINUE HOME EXERCISE PROGRAM UNTIL YOU ARE SEEN BY HOME HEALTH PHYSICAL THERAPY. Prescriptions: New Aspirin *EC* [Ecotrin] 325 mg PO BID #100 tablet Acetaminophen [Tylenol] 650 mg PO QID #100 tablet Naproxen [Aleve] 440 mg PO BID PRN #84 tablet PRN Reason: Pain Continue Timolol 0.5% Eye Drops [Timoptic 0.5% Eye Drops] 1 drops LEFT EYE BID omega-3 fatty acids 1,000 mg capsule 1,000 mg PO DAILY ibuprofen 200 mg capsule 800 mg PO TID PRN PRN Reason: Pain diltiazem CD 240 mg capsule,extended release 24 hr 240 mg PO DAILY 90 Days multivitamin tablet 1 cap PO QAM Discontinued Mapap Extra Strength 500 mg tablet 1,000 mg PO Q6H PRN PRN Reason: Pain - Disposition 01 Discharged Home, Self-Care
[2016-12-15] MEDS ORDERED: BISACODYL 10 MG SUPPOSITORY RECTALLY SCH (20:00)
== END 2016-12-14 15:55 | disposition home health service (06) | DRG 470 ==
LOC: SRG 06:42
PROVIDERS: ADMIT Orthopaedic Surgery; ATTEND Orthopaedic Surgery